=== PATIENT | female | born 1960 | race African-American/Black ===

== ENCOUNTER 2017-09-04 05:01 | Emergency (ER) | payer OTHER ==
[~2017-09-04] VITALS: Ht 152.4 cm; Wt 78.5 kg
[~2017-09-04 05:01] MED LIST: ASPIRIN EC81 MG ORAL; BENAZEPRIL HCL20 MG ORAL; CYCLOBENZAPRINE10 MG ORAL; IBUPROFEN600 MG ORAL; KEFLEX500 MG ORAL; METFORMIN HCL850 M1 ORAL; NORCO 5-325 TA1 EACH ORAL; ONDANSETRON ODT4 MG ORAL; PENICILLIN V P500 MG PO; PHENERGAN25 M1 ORAL; POTASSIUM CHLO10 ME3 ORAL; POTASSIUM CHLO10 MEQ ORAL; PREDNISONE50 MG ORAL; SILVADENE20 GM TP; SIMVASTATIN40 MG ORAL; ZOFRAN ODT4 MG ORAL
--- NOTE | 2017-09-04 05:14 | Emergency Room Report ---
History of Present Illness General Chief Complaint: Generalized Weakness Source: Patient Present Illness HPI This is a 56-year-old female with a history of high blood pressure and diabetes. She presents with weakness. She brought in by mom for coughing congestion and chest pain. She was here she was having symptom of weakness and dizziness. She herself has been sick for the last 3 days. She has slight cough or congestion. Also with headache and nausea. Several episode of diarrhea for the last 3 days. Low grade fever. When she stood up she felt lightheaded and dizzy. No syncope. No urinary complaint. Allergies: Coded Allergies: No Known Allergies (Unverified , 12/24/12) Patient History Past Medical History: see triage record, old chart reviewed Past Surgical History: other Pertinent Family History: none Social History: Denies: alcohol use, drug use Last Menstrual Period: NA Now: No Immunizations: other Reviewed Nursing Documentation: PMH: Agreed, PSxH: Agreed Nursing Documentation-PMH Hx Cardiac Problems: No Hx Hypertension: Yes Hx Diabetes: Yes Hx Cancer: No Hx Gastrointestinal Problems: Yes - colitis Hx Neurological Problems: No Hx Cerebrovascular Accident: No Hx Transient Ischemic Attacks: No Hx Dementia: No Hx Alzheimer's Disease: No Hx Parkinson's Disease: No Hx Meningitis: No Hx Encephalitis: No Hx Seizures: No Hx Epilepsy: No Hx Multiple Sclerosis: No Hx Cerebral Palsy: No Hx Amyotrophic Lat Sclerosis: No Hx Guillian-[place] Syndrome: No Hx Paralysis: No Hx Peripheral Neuropathy: Yes Hx Spinal Cord Injury: No Hx Head Trauma: No Hx Traumatic Brain Injury: No Hx Memory Loss: No Hx Concentration Difficulty: No Hx Speech Problem: No Hx Tremors: No Hx Vertigo: No Hx Dizziness: Yes Hx Syncope: No Hx Headaches: Yes Hx Aphasia: No Hx Dysphasia: No Hx Numbness: No Hx Weakness: Yes Hx Fatigue: Yes Hx Neurologic Surgery: No Hx Brain Shunt: No Review of Systems Constitutional: Reports: weakness Eye: Denies: eye pain, blurred vision ENT: Denies: ear pain, nose congestion, throat swelling Respiratory: Reports: cough Cardiovascular: Denies: chest pain, palpitations Gastrointestinal: Reports: diarrhea, nausea Musculoskeletal: Denies: back pain, joint pain Skin: Denies: rash Neurological: Denies: headache, numbness Endocrine: Denies: increased thirst, increased urine Hematologic/Lymphatic: Denies: easy bruising All Other Systems: negative except mentioned in HPI Physical Exam Vital Signs Date Time Temp Pulse Resp B/P (MAP) Pulse Ox O2 Delivery O2 Flow Rate FiO2 09/04/17 05:04 99.0 89 18 165/82 98 Room Air vitals with fever Sp02 EP Interpretation: reviewed, normal General Appearance: well appearing, no apparent distress, alert Head: normocephalic, atraumatic Eyes: bilateral eye PERRL, bilateral eye EOMI ENT: hearing grossly normal, normal pharynx Neck: full range of motion, supple, no meningismus Respiratory: chest non-tender, lungs clear, normal breath sounds Cardiovascular #1: regular rate, rhythm, no murmur Gastrointestinal: normal bowel sounds, non tender, no mass, no organomegaly, no bruit, non-distended Musculoskeletal: back normal, gait/station normal, normal range of motion Psychiatric: mood/affect normal Skin: warm/dry Medical Decision Making Diagnostic Impression: Primary Impression: Acute viral bronchiolitis Additional Impressions: Weakness generalized UTI (urinary tract infection) Qualified Codes: N30.00 - Acute cystitis without hematuria Candidiasis of female genitalia ER Course Patient with a viral illness. No evidence of PE, pneumonia, ACS to name a few. She felt better now. We'll discharge home. Lab Results Impression labs unremarkabl Last Vital Signs Date Time Temp Pulse Resp B/P (MAP) Pulse Ox O2 Delivery O2 Flow Rate FiO2 09/04/17 05:04 99.0 89 18 165/82 98 Room Air Status: improved Disposition: HOME, SELF-CARE Condition: Stable Scripts Fluconazole (FLUCONAZOLE) 100 Mg Tablet 100 MG ORAL DAILY, #1 TAB 0 Refills Prov: LC BHAGAT M.D. 09/04/17 Cephalexin* (KEFLEX*) 500 Mg Capsule 500 MG ORAL TID, #21 CAP 0 Refills Prov: LC BHAGAT M.D. 09/04/17 Albuterol Sulfate* (ALBUTEROL SULFATE MDI*) 8.5 Gm Hfa.aer.ad 2 PUFF INH Q4H Y for cough/wheezing, #1 EA 0 Refills Prov: LC BHAGAT M.D. 09/04/17 Additional Instructions: Rest. Increase fluids. Followup with your DrAshia in 7 days if not better. Return if worse. LC BHAGAT M.D. Sep 04, 2017 05:14
[2017-09-04] MEDS ORDERED: Ketorolac 30mg Inj IV ONE (05:15)
[2017-09-04 05:20] VITALS: BP 165/82
[2017-09-04 05:59] LABS: BILIRUBIN, URINE NEGATIVE (NEGATIVE); GLUCOSE, URINE (UA) NEGATIVE (NEGATIVE); KETONES,URINE NEGATIVE (NEGATIVE); LEUKOCYTE ESTERASE ,URINE 2+ (NEGATIVE); NITRITE,URINE NEGATIVE (NEGATIVE); PH,URINE 5 (4.5-8.0); PROTEIN,URINE 3+ (NEGATIVE); UROBILINOGEN,URINE NORMAL MG/DL (0.0-1.0)
[2017-09-04 06:02] LABS: EOSINOPHILS % (AUTO) 0.5 % (0.0-3.0); HEMATOCRIT 48.2 % (37.0-47.0); HEMOGLOBIN 15.7 G/DL (12.0-16.0); LYMPHOCYTES % (AUTO) 35.1 % (20.0-45.0); MEAN CORPUSCULAR VOLUME 88 FL (80-99); NEUTROPHILS % (AUTO) 54.4 % (45.0-75.0); PLATELET COUNT 330 K/UL (150-450); RED BLOOD COUNT 5.46 M/UL (4.20-5.40); RED CELL DISTRIBUTION WIDTH 12.5 % (11.6-14.8); WHITE BLOOD COUNT 5.4 K/UL (4.8-10.8)
[2017-09-04 06:15] LABS: ANION GAP 11 mmol/L (5-15); APPEARANCE,URINE SLIGHTLY CLOUDY; BLOOD UREA NITROGEN 15 mg/dL (7-18); CALCIUM 9.5 MG/DL (8.5-10.1); CARBON DIOXIDE 27 MMOL/L (21-32); CHLORIDE 97 MMOL/L (98-107); COLOR,URINE YELLOW; CREATININE 0.7 MG/DL (0.55-1.30); POTASSIUM 3.9 MMOL/L (3.5-5.1); SODIUM 135 MMOL/L (136-145)
[2017-09-04 06:18] LABS: ALANINE AMINOTRANSFERASE 55 U/L (12-78); ALBUMIN/GLOBULIN RATIO 0.8 (1.0-2.7); ALKALINE PHOSPHATASE 83 U/L (46-116); ASPARTATE AMINO TRANSFERASE 27 U/L (15-37); BILIRUBIN,TOTAL 0.3 MG/DL (0.2-1.0)
[2017-09-04 06:20] VITALS: BP 155/88
[2017-09-04] MEDS ORDERED: cefTRIAXone 1 GM in NS 55 ML IVPB ONE (06:30)
[2017-09-04] MEDS ORDERED: FLUCONAZOLE100 MG ORAL (06:39)
[2017-09-04] MEDS ORDERED: ALBUTEROL SULF8.5 GM INH (06:39)
[2017-09-04] MEDS ORDERED: KEFLEX500 MG ORAL (06:39)
[2017-09-04 07:15] VITALS: BP 155/88
== END 2017-09-04 07:15 | disposition home or self-care (01) ==
LOC: EMR 05:14
DX: J21.8 Acute bronchiolitis due to other specified organisms (principal); B34.9 Viral infection, unspecified; R53.1 Weakness; N39.0 Urinary tract infection, site not specified; I10 Essential (primary) hypertension; E11.9 Type 2 diabetes mellitus without complications
CPT/HCPCS: 36415; 80053; 81003; 83690; 85025; 87086; 96361; 96365; 96375; 99284; J0696; J1885; J2405

== ENCOUNTER 2018-12-30 03:33 | Emergency (ER) | payer OTHER ==
[~2018-12-30] VITALS: Ht 154.9 cm; Wt 74.8 kg
[~2018-12-30 03:33] MED LIST changes: +ALBUTEROL SULF8.5 GM INH; +FLUCONAZOLE100 MG ORAL
--- NOTE | 2018-12-30 03:45 | NUR ---
ED Nurse Note: Walk-in patient presents with complaints of two recent falls. right side pain and stiffness.
[2018-12-30 03:46] VITALS: BP 131/60
--- NOTE | 2018-12-30 04:01 | Emergency Room Report ---
History of Present Illness General Chief Complaint: Multiple Trauma/Fall Source: Patient Present Illness HPI This is a 58-year-old female with history of high blood pressure diabetes. She presents with chief complaint of fall and right leg pain. 3 days ago she slipped on the wet floor and twisted her right knee. She had knee pain. Pain is to the lateral aspect the knee. Worse with movement. She can't bend it all the way in. Tonight as she was walking down the steps she slipped and fell and hit her buttock. Complaining of tailbone pain. No loss of consciousness. Worse with walking. Has not take anything for it. Pain is 8 out of 10. Allergies: Coded Allergies: No Known Allergies (Unverified , 12/24/12) Patient History Past Medical History: see triage record, old chart reviewed, DM, HTN Past Surgical History: none Pertinent Family History: none Social History: Denies: smoking Last Menstrual Period: stop 20 years ago Now: No Immunizations: other Reviewed Nursing Documentation: PMH: Agreed; PSxH: Agreed Nursing Documentation-PMH Hx Cardiac Problems: No Hx Hypertension: Yes Hx Diabetes: Yes Hx Cancer: No Hx Gastrointestinal Problems: Yes - colitis Hx Neurological Problems: No Hx Cerebrovascular Accident: No Hx Transient Ischemic Attacks: No Hx Dementia: No Hx Alzheimer's Disease: No Hx Parkinson's Disease: No Hx Meningitis: No Hx Encephalitis: No Hx Seizures: No Hx Epilepsy: No Hx Multiple Sclerosis: No Hx Cerebral Palsy: No Hx Amyotrophic Lat Sclerosis: No Hx Guillian-[place] Syndrome: No Hx Paralysis: No Hx Peripheral Neuropathy: Yes Hx Spinal Cord Injury: No Hx Head Trauma: No Hx Traumatic Brain Injury: No Hx Memory Loss: No Hx Concentration Difficulty: No Hx Speech Problem: No Hx Tremors: No Hx Vertigo: No Hx Dizziness: Yes Hx Syncope: No Hx Headaches: Yes Hx Aphasia: No Hx Dysphasia: No Hx Numbness: No Hx Weakness: Yes Hx Fatigue: Yes Hx Neurologic Surgery: No Hx Brain Shunt: No Review of Systems Eye: Denies: eye pain, blurred vision ENT: Denies: ear pain, nose congestion, throat swelling Respiratory: Denies: cough, shortness of breath Cardiovascular: Denies: chest pain, palpitations Gastrointestinal: Denies: abdominal pain, diarrhea, nausea, vomiting Musculoskeletal: Reports: joint pain, joint swelling; Denies: back pain Skin: Denies: rash Neurological: Denies: headache, numbness Endocrine: Denies: increased thirst, increased urine Hematologic/Lymphatic: Denies: easy bruising All Other Systems: negative except mentioned in HPI Physical Exam Vital Signs Date Time Temp Pulse Resp B/P (MAP) Pulse Ox O2 Delivery O2 Flow Rate FiO2 12/30/18 03:45 98.2 88 20 99 Room Air vitals unremarkable Sp02 EP Interpretation: reviewed, normal General Appearance: well appearing, no apparent distress, alert Head: normocephalic, atraumatic Eyes: bilateral eye PERRL, bilateral eye EOMI ENT: hearing grossly normal, normal pharynx Neck: full range of motion, supple, no meningismus Respiratory: chest non-tender, lungs clear, normal breath sounds Cardiovascular #1: regular rate, rhythm, no murmur Gastrointestinal: normal bowel sounds, non tender, no mass, no organomegaly, no bruit, non-distended Rectal: other - Tenderness over the sacrum and coccyx area Musculoskeletal: back normal, gait/station normal, normal range of motion, other - Right knee with effusion and mild tenderness. Knee is stable., tender - Left 5th finger with mild tenderness over PIP joint. FROM. Psychiatric: mood/affect normal Skin: warm/dry Medical Decision Making Diagnostic Impression: Primary Impression: Multiple injuries due to trauma Additional Impressions: Sprain of right knee Qualified Codes: S83.91XA - Sprain of unspecified site of right knee, initial encounter Contusion of buttock Qualified Codes: S30.0XXA - Contusion of lower back and pelvis, initial encounter Sprain of finger of left hand Qualified Codes: S63.637A - Sprain of interphalangeal joint of left little finger, initial encounter ER Course This patient presents with soft tissue injury from fall. No fracture dislocation. We will discharge home. Other X-Ray Diagnostic Results Other X-Ray Diagnostic Results #1: X-Ray ordered: Sacral x-rays # of Views/Limited Vs Complete: 2 View Indication: Pain EP Interpretation: Yes Interpretation: no dislocation, no soft tissue swelling, no fractures Impression: No acute disease Electronically Signed by: Nuno Johnson MD Other X-Ray Diagnostic Results #2: X-Ray ordered: Rt knee xrays # of Views/Limited Vs Complete: 4 View Indication: Pain EP Interpretation: Yes Interpretation: no dislocation, no soft tissue swelling, no fractures Impression: No acute disease Electronically Signed by: Nuno Johnson MD Other X-Ray Diagnostic Results #3: X-Ray ordered: Left finger xrays # of Views/Limited Vs Complete: 3 View Indication: Pain EP Interpretation: Yes Interpretation: no dislocation, no soft tissue swelling, no fractures Impression: No acute disease Electronically Signed by: Nuno Johnson MD Last Vital Signs Date Time Temp Pulse Resp B/P (MAP) Pulse Ox O2 Delivery O2 Flow Rate FiO2 12/30/18 03:45 98.2 88 20 99 Room Air Status: improved Disposition: HOME, SELF-CARE Condition: Stable Scripts Ibuprofen* (MOTRIN*) 600 Mg Tablet 600 MG ORAL THREE TIMES A DAY, #30 TAB 0 Refills Prov: Nuno Johnson MD 12/30/18 Referrals: Greta ESPINOSAREFERRING (PCP) Additional Instructions: Follow-up with your doctor in 7 days. Return if worse. Nuno Johnson MD December 30, 2018 04:01
--- NOTE | 2018-12-30 04:15 | NUR ---
ED Nurse Note: Patient tolerted medicine well. Xray at bedside.
[2018-12-30] MEDS ORDERED: IBUPROFEN600 MG ORAL (05:20)
--- NOTE | 2018-12-30 05:37 | NUR ---
ED Nurse Note: Patient cleared for discharge by ERMD< patient is ambulatory with JARED bandage on right knee. no s/s of acute distress. patient verbalized understanding of discharge instructions. Paient departed with all personal belongings.
[2018-12-30 05:39] VITALS: BP 131/60
--- NOTE | 2018-12-30 11:11 | Diagnostic Imaging Report ---
Indication: pain in finger. trauma Findings: 3 views of the left fifth digit finger were obtained. No acute fractures, malalignment, erosions, or periosteal reaction are seen. Soft tissues are unremarkable. Impression: No acute findings.
--- NOTE | 2018-12-30 11:18 | Diagnostic Imaging Report ---
Indication: Pain Knee pain/trauma 3 views of the right knee were obtained. Findings: No acute fracture, malalignment, or joint effusion are identified. Joint space is relatively well-maintained. Impression: Negative for acute findings.
--- NOTE | 2018-12-30 12:15 | Diagnostic Imaging Report ---
Indication: Back pain Comparison: None Findings: 3 views of the sacrum and coccyx were obtained. The frontal projections of the sacrum are very limited due to bowel gas and technical factors. The lateral view shows an apparent fracture in the mid sacrum with a offset and mild posterior displacement of the distal sacrum relative to the proximal sacrum probably at about S4 level. Acuity is unknown. IMPRESSION: Suspected fracture involving the mid to lower sacrum. Acuity is not known. The findings of this report discussed via telephone with emergency room physician assistant Baer approximately 12:00 PM, 12/30/2018
== END 2018-12-30 05:40 | disposition home or self-care (01) ==
LOC: EMR 03:46
DX: S83.91XA Sprain of unspecified site of right knee, initial encounter (principal); S30.0XXA Contusion of lower back and pelvis, initial encounter; S63.637A Sprain of interphalangeal joint of left little finger, initial encounter; E11.9 Type 2 diabetes mellitus without complications; I10 Essential (primary) hypertension; W01.0XXA Fall on same level from slipping, tripping and stumbling without subsequent striking against object, initial encounter; Y92.9 Unspecified place or not applicable; E11.42 Type 2 diabetes mellitus with diabetic polyneuropathy
CPT/HCPCS: 72220; 99284